=== PATIENT | female | born 1995 | race American Indian/Alaskan Native ===

== ENCOUNTER 2020-10-08 12:59 | Emergency (ER) | payer OTHER ==
[2020-10-08] MEDS ORDERED: IBUPROFEN 800 MG TAB PO ONE (13:53)
[2020-10-08] MEDS ORDERED: IBUPROFEN 800 MG TAB ONE (13:55)
[2020-10-08] MEDS ORDERED: dexAMETHasone 20 MG/5 ML VIAL IM ONE (15:35)
--- NOTE | 2020-10-08 15:57 | Emergency Department Report ---
ED ENT HPI - General Chief complaint: Sore Throat Stated complaint: SWOLLEN NECK Time Seen by Provider: 10/08/20 15:26 Source: patient Mode of arrival: Ambulatory Limitations: No Limitations - History of Present Illness Initial comments: Patient is a 25-year-old female presents emergency room complaints of a sore throat that began approximately a week ago. Patient states that she has pain with swallowing but is able to tolerate p.o. intake. She states that today the swelling has increased in her throat. She states that she is also been having intermittent fever and chills. She denies any nausea, vomiting, diarrhea, cough, shortness of breath, chest pain, abdominal pain. No past medical history. No allergies to medications. No known sick contacts or recent travel. - Related Data Previous Rx's Medication Instructions Recorded Last Taken Type Amoxicillin [Trimox] 500 mg PO BID 10 Days #40 capsule 10/08/20 Unknown Rx Nystas/Diphen/Xyl Visc/Mylanta 30 ml MM Q4H PRN #300 ml 10/08/20 Unknown Rx [Magic Mouthwash] Allergies Allergy/AdvReac Type Severity Reaction Status Date / Time No Known Allergies Allergy Unverified 10/08/20 13:47 ED Dental HPI - General Chief complaint: Sore Throat Stated complaint: SWOLLEN NECK Time Seen by Provider: 10/08/20 15:26 Source: patient Mode of arrival: Ambulatory Limitations: No Limitations - Related Data Previous Rx's Medication Instructions Recorded Last Taken Type Amoxicillin [Trimox] 500 mg PO BID 10 Days #40 capsule 10/08/20 Unknown Rx Nystas/Diphen/Xyl Visc/Mylanta 30 ml MM Q4H PRN #300 ml 10/08/20 Unknown Rx [Magic Mouthwash] Allergies Allergy/AdvReac Type Severity Reaction Status Date / Time No Known Allergies Allergy Unverified 10/08/20 13:47 ED Review of Systems ROS: Stated complaint: SWOLLEN NECK Other details as noted in HPI Comment: All other systems reviewed and negative ED Past Medical Hx - Past Medical History Previous Medical History?: No - Surgical History Past Surgical History?: No - Medications Home Medications: Home Medications Medication Instructions Recorded Confirmed Last Taken Type Amoxicillin [Trimox] 500 mg PO BID 10 Days #40 capsule 10/08/20 Unknown Rx Nystas/Diphen/Xyl Visc/Mylanta 30 ml MM Q4H PRN #300 ml 10/08/20 Unknown Rx [Magic Mouthwash] ED Physical Exam - General Limitations: No Limitations General appearance: alert, in no apparent distress - Head Head exam: Present: atraumatic, normocephalic - Eye Eye exam: Present: normal appearance - ENT ENT exam: Present: mucous membranes moist, other (bilateral tonsillar hypertrop hy and exudates, uvula is midline, no uvular edema or devaition, no trismus, no tongue elevation, no submandibular edema) - Respiratory Respiratory exam: Present: normal lung sounds bilaterally. Absent: respiratory distress, wheezes, rales, rhonchi, stridor, chest wall tenderness, accessory muscle use, decreased breath sounds, prolonged expiratory - Cardiovascular Cardiovascular Exam: Present: regular rate, normal rhythm, normal heart sounds. Absent: systolic murmur, diastolic murmur, rubs, gallop - Neurological Exam Neurological exam: Present: alert, oriented X3 - Psychiatric Psychiatric exam: Present: normal affect, normal mood - Skin Skin exam: Present: warm, dry, intact ED Course Vital Signs 10/08/20 10/08/20 13:52 16:21 Temperature 101.9 F H Pulse Rate 115 H 88 Respiratory 20 16 Rate Blood Pressure 132/67 Blood Pressure 110/68 [Left] O2 Sat by Pulse 96 98 Oximetry ED Medical Decision Making - Lab Data Vital Signs 10/08/20 10/08/20 13:52 16:21 Temperature 101.9 F H Pulse Rate 115 H 88 Respiratory 20 16 Rate Blood Pressure 132/67 Blood Pressure 110/68 [Left] O2 Sat by Pulse 96 98 Oximetry - Medical Decision Making Patient is a 25-year-old female presents emergency room complaints of a sore throat that began approximately a week ago. Patient states that she has pain with swallowing but is able to tolerate p.o. intake. She states that today the swelling has increased in her throat. She states that she is also been having intermittent fever and chills. She denies any nausea, vomiting, diarrhea, cough, shortness of breath, chest pain, abdominal pain. No past medical history. No allergies to medications. No known sick contacts or recent travel. Initial vitals with fever and tachycardia, patient given ibuprofen. On exam:bilateral tonsillar hypertrophy and exudates, uvula is midline, no uvular edema or devaition, no trismus, no tongue elevation, no submandibular edema. Examination appears consistent with tonsillitis. Patient given dexamethasone IM while in the emergency department. Patient given prescription for medications. Advised patient Please take medication as prescribed. Increase your water intake. Throw away your toothbrush. Do not drink after others or allow others to drink after you. Alternate Tylenol and ibuprofen as needed for fever or chills. Gargle with warm salt water. Follow-up with a primary care doctor. Return to emergency room for any new or worsening symptoms. Critical care attestation.: If time is entered above; I have spent that time in minutes in the direct care of this critically ill patient, excluding procedure time. ED Disposition Clinical Impression: Tonsillitis Disposition: HOME / SELF CARE / HOMELESS Is pt being admited?: No Does the pt Need Aspirin: No Condition: Stable Instructions: Tonsillitis, [id number] Additional Instructions: Please take medication as prescribed. Increase your water intake. Throw away your toothbrush. Do not drink after others or allow others to drink after you. Alternate Tylenol and ibuprofen as needed for fever or chills. Gargle with warm salt water. Follow-up with a primary care doctor. Return to emergency room for any new or worsening symptoms. Prescriptions: Amoxicillin [Trimox] 500 mg PO BID 10 Days #40 capsule Nystas/Diphen/Xyl Visc/Mylanta [Magic Mouthwash] 30 ml MM Q4H PRN #300 ml PRN Reason: sore throat Referrals: ELENO NEIL MD [Staff Physician] - 2-[address] [facility] [Provider Group] - 2-3 Days Time of Disposition: 15:56 Print Language: [place]
[2020-10-08 16:22] VITALS: BP 110/68
== END 2020-10-08 16:35 | disposition home or self-care (01) ==
LOC: ED 12:59
DX: J03.90 Acute tonsillitis, unspecified (principal); Z79.899 Other long term (current) drug therapy
CPT/HCPCS: 96372; 99282; J1100